=== PATIENT | female | born 1980 | race African-American/Black ===

== ENCOUNTER 2020-10-02 14:13 | Observation (INO) ==
[2020-10-02] MEDS ORDERED: NALOXONE 0.4 MG/ML VIAL ONE (17:32)
[2020-10-02 18:02] LABS: Basophils % 0.2 % (0.0-0.8); Eosinophils # 0.2 10*3/uL (0.0-0.87); Eosinophils % 1.8 % (0.00-10.9); Hemoglobin 10.2 GM/DL (12.0-16.0); Immature Granulocytes % 0.6 %; Immature Granulocytes Absolute 0.06 #; Lymphocytes # 0.8 10*3/uL (1.4-4.0); Lymphocytes % 7.7 % (21.3-54.2); Mean Corpuscular HGB Conc 31.9 GM/DL (32-36); Mean Corpuscular Volume 79.2 FL (87-102); Mean Platelet Volume 10.9 FL (9.6-12.0); Monocytes % 5.5 % (1.7-12.7); Neutrophils % 84.2 % (38.7-73.9); Platelet Count 248 T/CUMM (130-400); Red Blood Count 4.04 MC/CUMM (3.8-5.5); Red Cell Distribution Width 15.7 % (9.3-17.3); White Blood Count 10.4 T/CUMM (4-12)
[2020-10-02 18:09] LABS: Albumin 2.9 G/DL (3.4-5.0); Bilirubin,Total 0.4 MG/DL (0.2-1.0); Osmolality,Calculated 279.5 MOS/KG (273-304); Total Protein 7.9 G/DL (6.4-8.3)
[2020-10-02] MEDS ORDERED: MORPHINE 4 MG/1 ML VIAL IV STA (18:25)
[2020-10-02] MEDS ORDERED: ONDANSETRON 4 MG/2 ML VIAL IV STA (18:25)
[2020-10-02] MEDS ORDERED: SODIUM CHLORIDE 0.9% 1,000 ML IV STA (18:36)
[2020-10-02] MEDS ORDERED: VANCOMYCIN INJ 1,000 MG in SODIUM CHLORIDE 0.9% 250 ML IV STA (18:36)
[2020-10-02] MEDS ORDERED: DEXTROSE 50% 25 GM/50 ML VIAL IV PRN (18:58)
[2020-10-02] MEDS ORDERED: ONDANSETRON 4 MG/2 ML VIAL IV PRN (18:58)
[2020-10-02] MEDS ORDERED: GLUCAGON 1 MG VIAL IM PRN (18:58)
[2020-10-02] MEDS ORDERED: ACETAMINOPHEN 325 MG TABLET PO PRN (18:58)
[2020-10-02] MEDS ORDERED: KETOROLAC 15 MG/1 ML VIAL IV PRN (18:58)
[2020-10-02] MEDS: LACTATED RINGERS 1,000 ML IV SCH (22:39)
[2020-10-03] MEDS ORDERED: BUPIVACAINE MPF 0.25% 30 ML VIAL ONE (07:13)
[2020-10-03] MEDS ORDERED: LIDOCAINE 1% 20 ML VIAL ONE (07:13)
[2020-10-03] MEDS ORDERED: CLINDAMYCIN INJ 900 MG in PREMIX 1 EACH IV ONE (07:30)
[2020-10-03] MEDS ORDERED: ONDANSETRON 4 MG/2 ML VIAL ONE (07:46)
[2020-10-03] MEDS ORDERED: LIDOCAINE 2% 5 ML VIAL ONE (07:46)
[2020-10-03] MEDS ORDERED: fentaNYL 100 MCG/2 ML VIAL ONE (07:46)
[2020-10-03] MEDS ORDERED: propofoL 200 MG/20 ML VIAL IV ONE (07:46)
[2020-10-03] MEDS ORDERED: MIDAZOLAM 2 MG/2 ML VIAL ONE (07:46)
[2020-10-03] MEDS ORDERED: CLINDAMYCIN INJ 50 ML IV ONE (08:12)
[2020-10-03 08:30] LABS: Calcium 8.4 MG/DL (8.5-10.1); Osmolality,Calculated 283.2 MOS/KG (273-304)
[2020-10-03] MEDS ORDERED: GLUCAGON 1 MG VIAL IM PRN (08:57)
[2020-10-03] MEDS ORDERED: DEXTROSE 50% 25 GM/50 ML VIAL IV PRN (08:57)
[2020-10-03] MEDS ORDERED: ONDANSETRON 4 MG/2 ML VIAL IV PRN (09:00)
[2020-10-03] MEDS ORDERED: PROMETHAZINE INJ 25 MG in SODIUM CHLORIDE 0.9% 50 ML IV PRN (09:00)
[2020-10-03] MEDS ORDERED: HYDROmorphone 2 MG/1 ML VIAL IV PRN (09:00)
[2020-10-03] MEDS ORDERED: diphenhydrAMINE 50 MG/1 ML VIAL IV PRN (09:00)
[2020-10-03] MEDS: MEPERIDINE 25 MG/1 ML VIAL IV PRN ×2 (09:05→09:20)
[2020-10-03] MEDS ORDERED: MEPERIDINE 25 MG/1 ML VIAL ONE (09:21)
[2020-10-03] MEDS: PANTOPRAZOLE 40 MG TABLET PO SCH (09:30)
[2020-10-03] MEDS: INSULIN REGULAR 100 UNIT/ML SUBCUT SCH ×3 (12:32→21:44)
[2020-10-03] MEDS: LACTATED RINGERS 1,000 ML IV SCH (12:33)
[2020-10-03] MEDS ORDERED: VANCOMYCIN INJ 1,500 MG in SODIUM CHLORIDE 0.9% 500 ML IV SCH (16:00)
[2020-10-03] MEDS: MORPHINE 4 MG/1 ML VIAL IV PRN ×2 (17:18→22:59)
[2020-10-04] MEDS: LACTATED RINGERS 1,000 ML IV SCH (03:51)
[2020-10-04] MEDS: MORPHINE 4 MG/1 ML VIAL IV PRN ×2 (04:02→08:56)
[2020-10-04] MEDS: PANTOPRAZOLE 40 MG TABLET PO SCH (08:56)
[2020-10-04] MEDS: INSULIN REGULAR 100 UNIT/ML SUBCUT SCH ×2 (08:57→11:57)
[2020-10-04 11:23] VITALS: BP 119/66
== END 2020-10-04 14:45 | disposition home or self-care (01) ==
LOC: N.EDINP 14:13 → N.ED 14:13 → N.EDINP 21:35 → N.3E 21:52
PROVIDERS: ADMIT Student in an Organized Health Care Education/Training Program; ATTEND Student in an Organized Health Care Education/Training Program

== ENCOUNTER 2022-08-16 14:03 | Observation (INO) ==
[2022-08-16 14:50] LABS: Basophils % 0.7 % (0.0-0.8); Eosinophils # 0.2 10*3/uL (0.0-0.87); Eosinophils % 4.6 % (0.00-10.9); Hematocrit 22.7 VOL% (35.7-47.0); Hemoglobin 6.6 GM/DL (12.0-16.0); Immature Granulocytes % 0.2 %; Immature Granulocytes Absolute 0.01 #; Lymphocytes # 1.3 10*3/uL (1.4-4.0); Mean Corpuscular HGB Conc 29.1 GM/DL (32-36); Mean Corpuscular Volume 75.2 FL (87-102); Mean Platelet Volume 11.9 FL (9.6-12.0); Monocytes # 0.4 10*3/uL (0.11-0.8); Monocytes % 8.5 % (1.7-12.7); Platelet Count 274 T/CUMM (130-400); Red Blood Count 3.02 MC/CUMM (3.8-5.5); Red Cell Distribution Width 15.9 % (9.3-17.3); White Blood Count 4.6 T/CUMM (4-12)
[2022-08-16 14:58] LABS: PT Patient Result 10.8 SECS (10.1-12.1); Partial Thromboplastin Time 27.1 SECS (23.7-32.9)
[2022-08-16 15:04] LABS: Alanine Aminotransferase 18 U/L (13-56); Albumin 2.9 G/DL (3.4-5.0); Alkaline Phosphatase 105 U/L (45-117); Aspartate Amino Transferase 8 U/L (0-37); Bilirubin,Total < 0.39 MG/DL (0.20-1.00); Blood Urea Nitrogen 26 MG/DL (7-18); Calcium 8.6 MG/DL (8.5-10.1); Carbon Dioxide 23 MMOL/L (21-32); Chloride 106 MMOL/L (98-107); Glucose 443 MG/DL (74-106); Osmolality,Calculated 293.1 MOS/KG (273-304); Potassium 4.6 MMOL/L (3.5-5.1); Sodium 135 MMOL/L (136-145); Total Protein 6.9 G/DL (6.4-8.2)
[2022-08-16 15:06] LABS: Folate 9.74 NG/ML (5.38-24.0); Vitamin B12 662 PG/ML (211-911)
[2022-08-16] MEDS ORDERED: ONDANSETRON 4 MG/2 ML VIAL IV PRN (16:11)
[2022-08-16] MEDS ORDERED: ALBUTEROL 2.5 MG/3 ML NEB RESP TX PRN (16:11)
[2022-08-16] MEDS ORDERED: ACETAMINOPHEN 325 MG TABLET PO PRN (16:11)
[2022-08-16] MEDS ORDERED: guaiFENesin/DM ER 600-30 MG TABLET PO PRN (16:11)
[2022-08-16] MEDS ORDERED: DOCUSATE SODIUM 100 MG CAPSULE PO PRN (16:11)
[2022-08-16] MEDS ORDERED: diphenhydrAMINE CAP 25 MG CAPSULE PO PRN (16:11)
[2022-08-16] MEDS ORDERED: SODIUM CHLORIDE 0.9% 1,000 ML IV PRN (16:15)
[2022-08-16 16:27] LABS: Sedimentation Rate-Westergren 15 MM/HR (0-20)
[2022-08-16] MEDS: SODIUM CHLORIDE 0.9% 1,000 ML IV SCH (16:32)
[2022-08-16] MEDS: hydrALAZINE 20 MG/1 ML VIAL IV PRN (16:33)
[2022-08-16] MEDS ORDERED: FERRIC GLUCONATE COMPLEX 125 MG in SODIUM CHLORIDE 0.9% 100 ML IV ONE ×2 (17:00→22:00)
[2022-08-16 21:27] LABS: Hematocrit 26.1 VOL% (35.7-47.0)
[2022-08-16 21:28] LABS: Hemoglobin 7.7 GM/DL (12.0-16.0)
[2022-08-16] MEDS: INSULIN REGULAR 100 UNIT/ML SUBCUT SCH (23:11)
[2022-08-17] MEDS: SODIUM CHLORIDE 0.9% 1,000 ML IV SCH ×2 (00:45→10:14)
[2022-08-17 01:32] LABS: Hematocrit 29.2 VOL% (35.7-47.0); Hemoglobin 8.9 GM/DL (12.0-16.0)
[2022-08-17] MEDS: hydrALAZINE 20 MG/1 ML VIAL IV PRN (01:41)
[2022-08-17 04:40] LABS: Basophils % 0.6 % (0.0-0.8); Eosinophils # 0.3 10*3/uL (0.0-0.87); Eosinophils % 5.1 % (0.00-10.9); Hematocrit 27.8 VOL% (35.7-47.0); Hemoglobin 8.4 GM/DL (12.0-16.0); Immature Granulocytes % 0.2 %; Immature Granulocytes Absolute 0.01 #; Lymphocytes # 1.4 10*3/uL (1.4-4.0); Lymphocytes % 26.5 % (21.3-54.2); Mean Corpuscular HGB Conc 30.2 GM/DL (32-36); Mean Corpuscular Volume 75.5 FL (87-102); Mean Platelet Volume 10.9 FL (9.6-12.0); Monocytes # 0.6 10*3/uL (0.11-0.8); Neutrophils % 56.6 % (38.7-73.9); Platelet Count 255 T/CUMM (130-400); Red Blood Count 3.68 MC/CUMM (3.8-5.5); Red Cell Distribution Width 15.9 % (9.3-17.3); White Blood Count 5.3 T/CUMM (4-12)
[2022-08-17 05:14] LABS: Calcium 8.5 MG/DL (8.5-10.1); Osmolality,Calculated 287.8 MOS/KG (273-304); Risk Ratio 2.52; Thyroid Stimulating Hormone 0.524 uIU/ml (0.358-3.74)
[2022-08-17] MEDS: INSULIN REGULAR 100 UNIT/ML SUBCUT SCH (08:18)
[2022-08-17] MEDS ORDERED: PANTOPRAZOLE 40 MG TABLET PO SCH (09:00)
[2022-08-17 10:19] VITALS: BP 178/97
[2022-08-18 09:34] LABS: Hemoglobin A1 (Alkaline) 98.3 % (96.5-98.5); Hemoglobin A2 (Alkaline) 1.7 % (1.5-3.5)
== END 2022-08-17 11:15 | disposition home or self-care (01) ==
LOC: N.ED 14:03 → N.EDINP 14:03
PROVIDERS: ADMIT Emergency Medicine; ATTEND Emergency Medicine